=== PATIENT | female | born 1980 | race Two or more races ===

== ENCOUNTER → 2019-11-28 | Outpatient (CLI) | payer OTHER ==
--- NOTE | 2019-11-28 14:52 | KCIC ---
EXAM: Bilateral knees, standing view. HISTORY: Pain and swelling. COMPARISON: None. FINDINGS: A frontal standing view both knees is obtained. There is no fracture, dislocation or subluxation. IMPRESSION: No acute osseous finding. Electronically signed by: Eunice Pulliam MD (11/28/2019 2:49 PM) [id number]
== END | disposition home or self-care (01) ==
LOC: KCIC 13:19
PROVIDERS: ATTEND Physical Medicine & Rehabilitation
DX: M25.561 Pain in right knee (principal)
CPT/HCPCS: 73565